=== PATIENT | female | born 1980 | race Caucasian/White ===

== ENCOUNTER → 2017-04-16 | Outpatient (CLI) | payer BC ==
--- NOTE | 2017-04-16 19:24 | WWHP ---
DATE OF SERVICE: 04/16/2017 CHIEF COMPLAINT: Patient is here for her routine gynecologic exam. HPI: This is a 37-year-old G4, P2-0-2-2 with an LMP of 03/26/2017. The patient is without gynecologic complaints. 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 She has had 2 daughters through a qa software tester in [place] who helped her to conceive with IVF. She is thinking about going back for IVF later this summer. She states that they do have frozen embryos of hers that are still available. PAST MEDICAL HISTORY: Seasonal allergies. MEDICATIONS: 1. Claritin 1 daily. 2. Also one vitamins daily. 3. Folic acid supplement daily. ALLERGIES: No known drug allergies. PAST SURGICAL HISTORY: Cyst removed from her tailbone many years ago. Also she has had IVF procedures done in the past. Past OB history: She had four IVF pregnancies and 2 resulted in spontaneous . The last 2 were successful vaginal live births. Past SHIP LOADER history: She has a history of primary infertility as above. She has no history of STDs. SOCIAL HISTORY: She denies tobacco, alcohol, and drug use. 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 She and her recently moved back to [place] in 01/17. FAMILY HISTORY: Unremarkable. She denies family history of defects or mental retardation. REVIEW OF SYSTEMS: Weight has been stable. She denies respiratory, cardiac, or GI problems. PHYSICAL EXAM: Blood pressure 98/57. Height 5 feet 6 inches. Weight 135 pounds. Temperature 96.8, pulse 89. This is a well-developed, well-nourished white female who is alert and oriented x3 in no acute distress. HEENT is within normal limits. NECK: Supple without mass or thyromegaly. CHEST AND LUNGS: Clear to auscultation. HEART: Regular rate and rhythm. Breasts are without mass or discharge. Axillary negative for adenopathy. BACK: Negative for CVA tenderness. ABDOMEN: Soft, nontender, without palpable masses. PELVIC EXAM: Normal external genitalia. Cervix and vagina appear normal. There is no unusual discharge. The uterus is slightly retroverted, nongravid size and nontender. There are no palpable adnexal masses or tenderness. Rectal exam is negative for mass or tenderness. EXTREMITIES: Nontender. IMPRESSION: 1. A 37-year-old female with normal gynecologic exam. 2. History of primary infertility who is planning on undergoing in vitro fertilization possibly later this summer. PLAN: 1. Pap smear was performed. 2. Self-breast examination was discussed. 3. Preconception counseling was discussed. 4. I have stressed the importance of folic acid daily. 5. We have also discussed concerns regarding Zika virus. I have recommended that she check for the latest recommendations on line through the CDC or the NIH websites. 6. We have discussed advanced maternal age and possible increased risk for Down syndrome. She states that her eggs were retrieved and fertilized at age 31. These are frozen embryos that would be used. This would probably put her risk for Down syndrome at the risk quoted for a 31-year-old. 7. She will return in one year and p.r.n.
== END | disposition home or self-care (01) ==
LOC: WWCWWP 09:54
PROVIDERS: ATTEND Obstetrics & Gynecology
DX: Z53.9 Procedure and treatment not carried out, unspecified reason (principal)

== ENCOUNTER → 2017-06-20 | Outpatient (CLI) | payer BC | END | disposition home or self-care (01) | LOC: LABWHC1 09:19 | PROVIDERS: ATTEND Obstetrics & Gynecology Reproductive Endocrinology | DX: Z32.00 Encounter for pregnancy test, result unknown (principal) | CPT/HCPCS: 36415; 84702 ==

== ENCOUNTER → 2017-06-23 | Outpatient (CLI) | payer BC | LOC: LABWHC1 16:25 | PROVIDERS: ATTEND Obstetrics & Gynecology Reproductive Endocrinology | DX: Z32.01 Encounter for pregnancy test, result positive (principal) | CPT/HCPCS: 36415; 84702 ==

== ENCOUNTER → 2017-08-01 | Outpatient (CLI) | payer BC ==
[2017-08-01 19:04] LABS: Estradiol 932.7 pg/mL
== END | disposition home or self-care (01) ==
LOC: LABWHC1 14:42
PROVIDERS: ATTEND Obstetrics & Gynecology Reproductive Endocrinology
DX: Z32.01 Encounter for pregnancy test, result positive (principal)
CPT/HCPCS: 36415; 82670; 84144

== ENCOUNTER 2018-02-19 06:13 | Inpatient (IN) | payer BC ==
[2018-02-19] MEDS ORDERED: TERBUTALINE 1 MG/ML VIAL SQ PRN (06:26)
[2018-02-19] MEDS ORDERED: CARBOPROST TROMETHAMINE 250 MCG/ML 1 ML AMP IM PRN (06:26)
[2018-02-19] MEDS ORDERED: OXYTOCIN 10 UNIT/ML 1 ML VIAL IM PRN (06:26)
[2018-02-19] MEDS ORDERED: METHYLERGONOVINE 0.2 MG/ML 1 ML AMP IM PRN (06:26)
[2018-02-19] MEDS ORDERED: LIDOCAINE 1% (PF) 10 MG/ML (30 ML SDV) SQ PRN (06:26)
[2018-02-19 06:34] VITALS: BMI 27.4
[2018-02-19] MEDS: OXYTOCIN 20 UNITS/1000 ML NS 1,000 ML IV SCH ×2 (06:35→07:37)
[2018-02-19] MEDS: LACTATED RINGERS 1,000 ML IV SCH ×2 (06:35→06:48)
[2018-02-19] MEDS ORDERED: SODIUM CHLORIDE 0.9% 100 ML BAG ONE (07:00)
[2018-02-19] MEDS ORDERED: BUPIVACAINE (PF) 0.25% 30 ML VIAL ONE (07:00)
[2018-02-19] MEDS ORDERED: fentaNYL (PF) 50 MCG/ML 5 ML AMP ONE (07:00)
[2018-02-19] MEDS ORDERED: BUPIVACAINE (PF) 0.25% 25 ML, fentaNYL (PF) 200 MCG in SODIUM CHLORIDE 0.9% 71 ML EPIDURAL ONE (07:20)
[2018-02-19 07:24] LABS: Anisocytosis Slight; Basophils % (A) 0 %; Eosinophils # (A) 0.1 k/uL (0-0.7); Eosinophils % (A) 1 %; HCT 29.5 % (34.0-46.0); HGB 9.5 gm/dL (11.4-16.0); Hypochromasia Moderate; Lymphocytes # (A) 2.3 k/uL (1.0-4.8); Lymphocytes % (A) 22 %; MCH 24.9 pg (25.0-35.0); MCHC 32.1 g/dL (31.0-37.0); MCV 77.5 fL (80.0-100.0); Mean Platelet Volume 9.7; Microcytosis Slight; Monocytes # (A) 0.5 k/uL (0-1.0); Monocytes % (A) 5 %; Neutrophils # (A) 7.2 k/uL (1.3-7.7); Neutrophils % (A) 69 %; Platelet Count 214 k/uL (150-450); Poikilocytosis Slight; RBC 3.81 m/uL (3.80-5.40); RDW 16.3 % (11.5-15.5); WBC 10.4 k/uL (3.8-10.6)
--- NOTE | 2018-02-19 07:27 | P.HPOB ---
History of Present Illness H&P Date: 02/19/18 This is a 38-year-old white female 5 para 20-2 EDC 02/25/2018 at 39 and one sevenths weeks' gestation. Patient presents for induction for advanced cervical dilatation. She was seen in the office yesterday and noted to be 7 cm dilated. She denies fluid leakage or vaginal bleeding. Fetus is been active throughout the . Past medical history is significant for infertility, unexplained. Past surgical history D&C, tailbone removed of the cyst, HSG. Current medications vitamins daily. ALLERGIES none known. Social history patient is , she is a nonsmoker, she is a teacher at a local middle school. Obstetric history blood type A-, rubella status immune. VDRL testing, urine culture, hepatitis B surface antigen, HIV testing, gonorrhea and chlamydia cultures, group B strep cultures all negative. One-hour Glucola 124. On exam this is a pleasant white female, 5 foot 6 inches, 170 pounds, blood pressure 119/77, pulse 88. Gen. physical exam is within normal limits. Extremities are negative for edema. Heart rate is consistent with reactive NST. Cervix is 7 cm dilated, 70% effaced, -1 to -2 station, vertex. Artificial amniorrhexis reveals clear fluid. Impression: 39 and one sevenths weeks intrauterine , advanced maternal age, advanced cervical dilatation, here for elective induction, all signs reassuring. Plan: Close maternal and surveillance. Epidural has been placed per patient request. Anticipate normal spontaneous vaginal delivery. Review of Systems Constitutional: Reports as per HPI Past Medical History Past Medical History: No Reported History History of Any Multi-Drug Resistant Organisms: None Reported Additional Past Surgical History / Comment(s): Cyst Removed from tail bone 1997. [place] Tooth Extraction Past Anesthesia/Blood Transfusion Reactions: No Reported Reaction Past Psychological History: No Psychological Hx Reported Smoking Status: Never smoker Past Alcohol Use History: None Reported Past Drug Use History: None Reported - Past Family History Mother Family Medical History: No Reported History Medications and Allergies Home Medications Medication Instructions Recorded Confirmed Type Albuterol Inhaler [Ventolin Hfa 1 puff PO DIRECTED 02/19/18 02/19/18 History Inhaler] Pnv No.95/Ferrous Fum/Folic AC 1 each PO DAILY 02/19/18 02/19/18 History [ Multivitamin Tablet] Allergies Allergy/AdvReac Type Severity Reaction Status Date / Time No Known Allergies Allergy Verified 02/19/18 06:24 Exam - Vital Signs Vital signs: Vital Signs Temp Pulse Resp BP 02/19/18 06:27 97.3 F L 88 16 119/77 Intake and Output 02/18/18 02/19/18 02/19/18 22:59 06:59 14:59 Intake Total 1000 Balance 1000 Intake: Intake, IV Titration 1000 Amount Lactated Ringers 1,000 ml 1000 @ 125 mls/hr IV .Q8H [facility] Rx#:[id number] Other: Weight 77.111 kg See dictation, please Assessment and Plan Plan: Close maternal and surveillance. Anticipate normal spontaneous vaginal delivery. Time with Patient: Less than 30
[2018-02-19] MEDS ORDERED: diphenhydrAMINE 25 MG CAP PO PRN (12:12)
[2018-02-19] MEDS ORDERED: WITCH HAZEL 1 EACH MED..PAD TOPICAL PRN (12:12)
[2018-02-19] MEDS ORDERED: diphenhydrAMINE 50 MG CAP PO PRN (12:12)
[2018-02-19] MEDS ORDERED: diphenhydrAMINE 50 MG/ML 1 ML VIAL IVP PRN ×2 (12:12)
[2018-02-19] MEDS ORDERED: LANOLIN CREAM 5 GM TUBE TOPICAL PRN (12:12)
[2018-02-19] MEDS ORDERED: ACETAMINOPHEN TAB 325 MG TAB PO PRN (12:12)
[2018-02-19] MEDS ORDERED: ZOLPIDEM 5 MG TAB PO PRN (12:12)
[2018-02-19] MEDS ORDERED: SIMETHICONE 80 MG CHEWABLE PO PRN (12:12)
[2018-02-19] MEDS ORDERED: BENZOCAINE/MENTHOL SPRAY 1 GM/SPRAY AEROSOL TOPICAL PRN (12:12)
--- NOTE | 2018-02-19 12:34 | DN ---
DELIVERY SUMMARY DATE OF DELIVERY: 02/19/2018 This is a 38-year-old white female, 5, para 2-0-2-2, EDC 02/25/2018, at 39-1/7 weeks' gestation. Patient presented for induction for advanced cervical dilatation, she was noted to be 7 cm dilated yesterday in the office. otherwise unremarkable. She denies uterine contractions or vaginal bleeding. She denies fluid leakage. On admission, she was 7 cm, 70%, -2, vertex presentation. Artificial amniorrhexis revealed clear fluid. Epidural was placed per her request. Oxytocin was started and titrated per hospital protocol. Patient progressed well through the first stage of labor and was judged to be completely dilated at 1119 hours. Perineal body was prepped and draped in usual sterile fashion at that time. With excellent maternal expulsive efforts, ultimately, the perineal body was distended and the 's head delivered occiput anterior. She restituted accordingly. There was no nuchal cord noted. The right or anterior shoulder was gently delivered from underneath the pubic symphysis at which time the oropharynx, nasopharynx, and external nares were all bulb suctioned on the perineal body. Patient was officially delivered of a live-born female at 1144 hours. The umbilical cord was doubly clamped and ligated, she was handed to waiting nurses for evaluation where scores of 9 and 9 at one and five minutes respectively were given. Placenta delivered spontaneously, it was inspected and noted to be intact with trivascular cord at 1148 hours. At this time, the perineal body was redraped. Inspection of the cervix, vagina, perineum, and periurethral areas revealed a small first-degree laceration at 6 o'clock. This was reapproximated with a single [id number] suture of 3-0 Vicryl. Fundus is firm and in the midline, symmetric and 18-week size upon completion of delivery. Cord blood was sent to the lab for known Rh negative status. Infant's weight 3660 g or 8 pounds 1 ounce. The patient and her family are allowed to begin the bonding experience in the LDR. MMODL / IJN: [id number] /
[2018-02-19] MEDS: IBUPROFEN 600 MG TAB PO PRN ×2 (12:48→19:39)
[2018-02-19] MEDS ORDERED: Rhogam IMMUNE GLOBULIN 1,500 UNIT/1 ML IM ONE (17:28)
[2018-02-19] MEDS: SENNOSIDES-DOCUSATE SODIUM 1 EACH TAB PO SCH (19:39)
[2018-02-20] MEDS: LACTATED RINGERS 1,000 ML IV SCH (00:49)
[2018-02-20] MEDS: IBUPROFEN 600 MG TAB PO PRN ×3 (02:01→14:57)
--- NOTE | 2018-02-20 07:13 | P.DS ---
Providers Date of admission: 02/19/18 06:13 Expected date of discharge: 02/20/18 Attending physician: Leatha Snow Primary care physician: Stated None Hospital Course: This is a 38-year-old female 5 para 20-2 EDC 02/25/2018 at 39 and one sevenths weeks' gestation. Patient presented for induction with advanced cervical dilatation, she was noted to be 7 cm dilated in the office. was otherwise unremarkable, group B strep cultures negative, rubella status immune. Please see my dictated history and physical for details. Artificial amniorrhexis revealed clear fluid. Epidural was placed per her request. Oxytocin was started and titrated per hospital protocol. She went on to deliver a liveborn female with scores of 9 and 9 at one and 5 minutes respectively. Infant weight 8 lbs. 1 oz. or 3660 g. There was a small first-degree perineal laceration that required a single [id number] suture of Vicryl, please see dictated delivery note for details. This morning the patient is doing well. She is voiding, ambulate and passing flatus without difficulty. Vital signs are stable and she is afebrile. Fundus is firm and in the midline, symmetric and 18 week size. Extremities are negative for edema. Chest is clear in all wisdom. is doing well. Breast-feeding is also going well. Patient is being discharged home today in very good condition. She will follow- up in the office with me in 6 weeks. I have reminded her no intercourse, tampons or douching. She will use [id number] ibuprofen products as needed for pain. We have briefly discussed options for contraception and we will discuss this further in the office. She is to call with any fevers shakes or chills, foul smelling or copious lochia, with the passage of large blood clots, with any pain not alleviated by ibuprofen, or indeed with any concerns. Patient Condition at Discharge: Good Plan - Discharge Summary New Discharge Prescriptions: No Action Pnv No.95/Ferrous Fum/Folic AC [ Multivitamin Tablet] 1 each PO DAILY Albuterol Inhaler [Ventolin Hfa Inhaler] 1 puff PO DIRECTED Discharge Medication List Albuterol Inhaler [Ventolin Hfa Inhaler] 1 puff PO DIRECTED 02/19/18 [History ] Pnv No.95/Ferrous Fum/Folic AC [ Multivitamin Tablet] 1 each PO DAILY [History] Follow up Appointment(s)/Referral(s): Leatha Snow MD [STAFF PHYSICIAN] - 6 Weeks
[2018-02-20] MEDS: SENNOSIDES-DOCUSATE SODIUM 1 EACH TAB PO SCH (07:41)
[2018-02-20 08:30] LABS: Anisocytosis Slight; Basophils % (A) 0 %; Eosinophils # (A) 0.1 k/uL (0-0.7); Eosinophils % (A) 1 %; HCT 27.3 % (34.0-46.0); HGB 8.6 gm/dL (11.4-16.0); Hypochromasia Moderate; Lymphocytes # (A) 2.3 k/uL (1.0-4.8); Lymphocytes % (A) 19 %; MCH 24.8 pg (25.0-35.0); MCHC 31.6 g/dL (31.0-37.0); MCV 78.5 fL (80.0-100.0); Mean Platelet Volume 9.4; Microcytosis Slight; Monocytes # (A) 0.5 k/uL (0-1.0); Monocytes % (A) 4 %; Neutrophils # (A) 8.7 k/uL (1.3-7.7); Neutrophils % (A) 73 %; Platelet Count 175 k/uL (150-450); Poikilocytosis Slight; RBC 3.48 m/uL (3.80-5.40); RDW 16.5 % (11.5-15.5); WBC 11.9 k/uL (3.8-10.6)
[2018-02-20 10:24] VITALS: BP 124/73; PULSE 90; RESP 16; TEMP 98.1
== END 2018-02-20 14:55 | disposition home or self-care (01) | DRG 775 ==
LOC: 4FBP 06:13
PROVIDERS: ADMIT Obstetrics & Gynecology; ATTEND Obstetrics & Gynecology
PROC: 3E0R3NZ Introduction of Analgesics, Hypnotics, Sedatives into Spinal Canal, Percutaneous Approach (ICD-10-PCS; principal; 2018-02-19)
PROC: 10E0XZZ Delivery of Products of Conception, External Approach (ICD-10-PCS; principal; 2018-02-19)
PROC: 10907ZC Drainage of Amniotic Fluid, Therapeutic from Products of Conception, Via Natural or Artificial Opening (ICD-10-PCS; principal; 2018-02-19)
PROC: 0HQ9XZZ Repair Perineum Skin, External Approach (ICD-10-PCS; principal; 2018-02-19)
PROC: 00HU33Z Insertion of Infusion Device into Spinal Canal, Percutaneous Approach (ICD-10-PCS; principal; 2018-02-19)
PROC: 3E033VJ Introduction of Other Hormone into Peripheral Vein, Percutaneous Approach (ICD-10-PCS; principal; 2018-02-19)
DX: O70.0 First degree perineal laceration during delivery (principal); Z37.0 Single live birth; Z3A.39 39 weeks gestation of pregnancy
CPT/HCPCS: 85025; 85461; 88307

== ENCOUNTER 2018-02-27 20:40 | Observation (INO) | payer BC ==
[2018-02-27] MEDS ORDERED: SODIUM CHLORIDE 0.9% 1,000 ML IV STA ×2 (21:35→22:41)
[2018-02-27] MEDS ORDERED: cefTRIAXone IN SWFI 2,000 MG/20 ML SYRINGE IVP STA (21:42)
[2018-02-27] MEDS ORDERED: metroNIDAZOLE-NS PMX 500 MG in SALINE 1 100ML.BAG IVPB STA (21:42)
[2018-02-27 22:27] LABS: Anisocytosis Slight; Basophils % (A) 0 %; Eosinophils % (A) 0 %; HCT 29.4 % (34.0-46.0); HGB 9.4 gm/dL (11.4-16.0); Hypochromasia Slight; Lymphocytes # (A) 1.2 k/uL (1.0-4.8); Lymphocytes % (A) 8 %; MCH 24.3 pg (25.0-35.0); MCV 75.9 fL (80.0-100.0); Mean Platelet Volume 7.9; Microcytosis Slight; Monocytes # (A) 0.5 k/uL (0-1.0); Monocytes % (A) 3 %; Neutrophils % (A) 88 %; Platelet Count 343 k/uL (150-450); Poikilocytosis Slight; RBC 3.87 m/uL (3.80-5.40); RDW 17.2 % (11.5-15.5); WBC 15.9 k/uL (3.8-10.6)
[2018-02-27 22:28] LABS: Appearance,Urine Clear (Clear); Bacteria,Urine Rare /hpf; Bilirubin,Urine Negative (Negative); Blood,Urine Moderate (Negative); Color,Urine Yellow; Glucose,Urine (UA) Negative (Negative); Ketones,Urine Negative (Negative); Leukocyte Esterase,Urine Trace (Negative); Mucus,Urine Rare /hpf; Nitrite,Urine Negative (Negative); Protein,Urine 1+ (Negative); RBC,Urine 25 /hpf (0-5); Specific Gravity,Urine 1.022 (1.001-1.035); Squamous Epithelial Cell,Urine 3 /hpf (0-4); Urobilinogen,Urine <2.0 mg/dL (<2.0); WBC,Urine 9 /hpf (0-5)
[2018-02-27 22:36] LABS: ALT 76 U/L (9-52); AST 42 U/L (14-36); Albumin 3.1 g/dL (3.5-5.0); Alkaline Phosphatase 207 U/L (38-126); Anion Gap 12 mmol/L; Blood Urea Nitrogen 16 mg/dL (7-17); Carbon Dioxide 21 mmol/L (22-30); Chloride 106 mmol/L (98-107); Glucose 109 mg/dL (74-99); Potassium 3.6 mmol/L (3.5-5.1); Sodium 139 mmol/L (137-145); Total Bilirubin 0.4 mg/dL (0.2-1.3)
--- NOTE | 2018-02-27 22:50 | US ---
EXAMINATION TYPE: US pelvic complete DATE OF EXAM: 02/27/2018 COMPARISON: NONE CLINICAL HISTORY: Pain. Fever. Vaginal delivery 02/19/18 TECHNIQUE: Transabdominal (TA). Date of LMP: unknown EXAM MEASUREMENTS: Uterus: 16.6 x 8.2 x 12.4 cm Right Ovary: 3.9 x 2.4 x 2.3 cm Left Ovary: 4.3 x 2.9 x 2.6 cm 1. Uterus: Anteverted 2. Endometrium: heterogeneous, fluid and solid component noted within, unable to detect any increase d vascularity at this time 3. Right Ovary: appears wnl 4. Left Ovary: appears wnl Spectral, color and waveform doppler imaging shows good arterial and venous flow within the ovaries ; there is no evidence for ovarian torsion. 5. Bilateral Adnexa: appears wnl 6. Posterior cul-de-sac: wnl IMPRESSION: Large uterus. There is complex fluid in the endometrial cavity that measures u p to 2 cm in thickness consistent with blood clot and possible endometritis. Retained products is pos sible.
--- NOTE | 2018-02-27 22:55 | ED ---
General Adult HPI - General Chief complaint: Fever Stated complaint: Fever Time Seen by Provider: 02/27/18 21:08 Source: patient, RN notes reviewed Mode of arrival: ambulatory Limitations: no limitations - History of Present Illness Initial comments: 38-year-old P3 female presents to the emergency department for a chief complaint of fever 2 days. Patient is date 8 with her third child. Patient states that she has had chills intermittently over the past 2 days. Patient states that yesterday her fever was [address] Snow who instructed her to take fever suppressants. Patient states when she spoke with Dr. Snow she was having breast pain and she thought the fever may be related to mastitis. Patients breast pain has since subsided. Today, patient complains of mild abdominal pain. Patient denies any urinary pain or burning. However she states that when she has the chills she is slightly incontinent. Patient states she has been able to eat and drink normally. Patient does complain of some mild lower back pain but states this has been consistent throughout her and post period. Patient denies any other complaints at this time. Patient denies any shortness of breath, chest pain, nausea or vomiting. - Related Data Home Medications Medication Instructions Recorded Confirmed Pnv No.95/Ferrous Fum/Folic AC 1 tab PO DAILY 02/19/18 02/27/18 [ Multivitamin Tablet] Acetaminophen Tab [Tylenol Tab] 500 - 1,000 mg PO Q6HR PRN 02/27/18 02/27/18 Allergies Allergy/AdvReac Type Severity Reaction Status Date / Time No Known Allergies Allergy Verified 02/27/18 20:54 Review of Systems ROS Statement: Those systems with pertinent positive or pertinent negative responses have been documented in the HPI. ROS Other: All systems not noted in ROS Statement are negative. Past Medical History Past Medical History: No Reported History History of Any Multi-Drug Resistant Organisms: None Reported Additional Past Surgical History / Comment(s): Cyst Removed from tail bone 1997. [place] Tooth Extraction Past Anesthesia/Blood Transfusion Reactions: No Reported Reaction Past Psychological History: No Psychological Hx Reported Smoking Status: Never smoker Past Alcohol Use History: None Reported Past Drug Use History: None Reported - Past Family History Mother Family Medical History: No Reported History General Exam Limitations: no limitations General appearance: alert, in no apparent distress Eye exam: Present: normal appearance, PERRL, EOMI. Absent: scleral icterus, conjunctival injection, periorbital swelling ENT exam: Present: normal exam, normal oropharynx, mucous membranes moist, TM's normal bilaterally Neck exam: Present: normal inspection, full ROM. Absent: tenderness, meningismus, lymphadenopathy Respiratory exam: Present: normal lung sounds bilaterally. Absent: respiratory distress, wheezes, rales, rhonchi, stridor Cardiovascular Exam: Present: regular rate, normal rhythm, normal heart sounds. Absent: systolic murmur, diastolic murmur, rubs, gallop, clicks GI/Abdominal exam: Present: soft, tenderness (Mild tenderness in the right and left lower quadrant.), normal bowel sounds. Absent: distended, guarding, rebound, rigid External exam: Present: normal external exam Speculum exam: Present: vaginal bleeding. Absent: vaginal discharge, cervical discharge, foreign body, tissue, laceration Neurological exam: Present: alert, oriented X3, CN II-XII intact Psychiatric exam: Present: normal affect, normal mood Skin exam: Present: other (Bilat Breasts appear non-erythematous and there is no drainage noted. Breasts are nontender to palpation.) Course Vital Signs 02/27/18 20:43 Temperature 102.7 F H Pulse Rate 116 H Respiratory 18 Rate Blood Pressure 133/60 O2 Sat by Pulse 98 Oximetry Medical Decision Making - Medical Decision Making 38-year-old female presents to the emergency department for a chief complaint of fever 2 days. Patient states that yesterday her fever reached [address] Snow who thought it was likely mastitis and instructed her to take fever reducers. Patient went to [facility] earlier today and they told her to come here. Exam is relatively unremarkable. Patient has very mild lower abdominal tenderness. Bilateral breasts are non- erythematous and non tender. No drainage from the breasts. Speculum exam showed some blood in the vaginal vault and a culture was performed. Patient's temperature 102.7 on presentation with a pulse rate of 116. CBC shows White blood cell count 15.9. Hemoglobin 9.4. CMP unremarkable. Lactic acid is 1.1. Blood culture was drawn before antibiotics were started. Urine does not show infection. Influenza A and B were negative. Ultrasound of the pelvis shows a large uterus. There is complex fluid in the endometrial cavity that measures up to 2 cm in thickness consistent with blood clot and possible endometritis. Retained products is possible. Patient was given Tylenol and Motrin which decreased her temperature to 100.9 and pulse rate to 88. She was given IV Rocephin and Flagyl as well as [address] Kendrick consulted Dr. Snow who instructed for patient to be admitted and nothing by mouth. Continuing Rocephin and Flagyl. She will have [facility] for fever reduction. - Lab Data Result diagrams: 02/27/18 22:12 02/27/18 22:12 Lab Results 02/27/18 02/27/18 02/27/18 Range/Units 22:12 22:12 22:12 WBC 15.9 H (3.8-10.6) k/uL RBC 3.87 (3.80-5.40) m/uL Hgb 9.4 L (11.4-16.0) gm/dL Hct 29.4 L (34.0-46.0) % MCV 75.9 L (80.0-100.0) fL MCH 24.3 L (25.0-35.0) pg MCHC 32.0 (31.0-37.0) g/dL RDW 17.2 H (11.5-15.5) % Plt Count 343 (150-450) k/uL Neutrophils % 88 % Lymphocytes % 8 % Monocytes % 3 % Eosinophils % 0 % Basophils % 0 % Neutrophils # 14.0 H (1.3-7.7) k/uL Lymphocytes # 1.2 (1.0-4.8) k/uL Monocytes # 0.5 (0-1.0) k/uL Eosinophils # 0.0 (0-0.7) k/uL Basophils # 0.0 (0-0.2) k/uL Hypochromasia Slight Poikilocytosis Slight Anisocytosis Slight Microcytosis Slight Sodium 139 (137-145) mmol/L Potassium 3.6 (3.5-5.1) mmol/L Chloride 106 (98-107) mmol/L Carbon Dioxide 21 L (22-30) mmol/L Anion Gap 12 mmol/L BUN 16 (7-17) mg/dL Creatinine 0.60 (0.52-1.04) mg/dL Est GFR (CKD-EPI)AfAm >90 (>60 ml/min/1.73 sqM) Est GFR (CKD-EPI)NonAf >90 (>60 ml/min/1.73 sqM) Glucose 109 H (74-99) mg/dL Plasma Lactic Acid Enrique (0.7-2.0) mmol/L Calcium 9.0 (8.4-10.2) mg/dL Total Bilirubin 0.4 (0.2-1.3) mg/dL AST 42 H (14-36) U/L ALT 76 H (9-52) U/L Alkaline Phosphatase 207 H (38-126) U/L Total Protein 6.0 L (6.3-8.2) g/dL Albumin 3.1 L (3.5-5.0) g/dL Urine Color Urine Appearance (Clear) Urine pH (5.0-8.0) Ur Specific [place] (1.001-1.035) Urine Protein (Negative) Urine Glucose (UA) (Negative) Urine Ketones (Negative) Urine Blood (Negative) Urine Nitrite (Negative) Urine Bilirubin (Negative) Urine Urobilinogen (<2.0) mg/dL Ur Leukocyte Esterase (Negative) Urine RBC (0-5) /hpf Urine WBC (0-5) /hpf Ur Squamous Epith Cells (0-4) /hpf Urine Bacteria (None) /hpf Urine Mucus (None) /hpf Influenza Type A RNA Not Detected (Not Detectd) Influenza Type B (PCR) Not Detected (Not Detectd) 02/27/18 02/27/18 Range/Units 22:12 22:12 WBC (3.8-10.6) k/uL RBC (3.80-5.40) m/uL Hgb (11.4-16.0) gm/dL Hct (34.0-46.0) % MCV (80.0-100.0) fL MCH (25.0-35.0) pg MCHC (31.0-37.0) g/dL RDW (11.5-15.5) % Plt Count (150-450) k/uL Neutrophils % % Lymphocytes % % Monocytes % % Eosinophils % % Basophils % % Neutrophils # (1.3-7.7) k/uL Lymphocytes # (1.0-4.8) k/uL Monocytes # (0-1.0) k/uL Eosinophils # (0-0.7) k/uL Basophils # (0-0.2) k/uL Hypochromasia Poikilocytosis Anisocytosis Microcytosis Sodium (137-145) mmol/L Potassium (3.5-5.1) mmol/L Chloride (98-107) mmol/L Carbon Dioxide (22-30) mmol/L Anion Gap mmol/L BUN (7-17) mg/dL Creatinine (0.52-1.04) mg/dL Est GFR (CKD-EPI)AfAm (>60 ml/min/1.73 sqM) Est GFR (CKD-EPI)NonAf (>60 ml/min/1.73 sqM) Glucose (74-99) mg/dL Plasma Lactic Acid Enrique 1.1 (0.7-2.0) mmol/L Calcium (8.4-10.2) mg/dL Total Bilirubin (0.2-1.3) mg/dL AST (14-36) U/L ALT (9-52) U/L Alkaline Phosphatase (38-126) U/L Total Protein (6.3-8.2) g/dL Albumin (3.5-5.0) g/dL Urine Color Yellow Urine Appearance Clear (Clear) Urine pH 7.0 (5.0-8.0) Ur Specific [place] 1.022 (1.001-1.035) Urine Protein 1+ H (Negative) Urine Glucose (UA) Negative (Negative) Urine Ketones Negative (Negative) Urine Blood Moderate H (Negative) Urine Nitrite Negative (Negative) Urine Bilirubin Negative (Negative) Urine Urobilinogen <2.0 (<2.0) mg/dL Ur Leukocyte Esterase Trace H (Negative) Urine RBC 25 H (0-5) /hpf Urine WBC 9 H (0-5) /hpf Ur Squamous Epith Cells 3 (0-4) /hpf Urine Bacteria Rare H (None) /hpf Urine Mucus Rare H (None) /hpf Influenza Type A RNA (Not Detectd) Influenza Type B (PCR) (Not Detectd) Disposition Clinical Impression: Endometritis, Retained products of conception Disposition: ADMITTED IP TO THIS [facility] Condition: Good Is patient prescribed a controlled substance at d/c from ED?: No Referrals: None,Stated [Primary Care Provider] - 1-2 days Time of Disposition: 23:53
[2018-02-27] MEDS ORDERED: IBUPROFEN 600 MG TAB PO STA (23:16)
[2018-02-27] MEDS ORDERED: KETOROLAC 30 MG/ML 1 ML VIAL IVP PRN (23:37)
[2018-02-27] MEDS ORDERED: NALOXONE 0.4 MG/ML 1 ML VIAL IV PRN (23:37)
[2018-02-27] MEDS: ACETAMINOPHEN IV (For NPO) 1,000 MG in EMPTY BAG 1 BAG IVPB SCH (23:55)
[2018-02-28 00:45] VITALS: BMI 25.2
[2018-02-28] MEDS: SODIUM CHLORIDE 0.9% 1,000 ML IV SCH ×2 (00:54→11:01)
[2018-02-28] MEDS: ACETAMINOPHEN IV (For NPO) 1,000 MG in EMPTY BAG 1 BAG IVPB SCH ×2 (06:24→11:03)
[2018-02-28] MEDS ORDERED: metroNIDAZOLE-NS PMX 500 MG in SALINE 1 100ML.BAG IVPB SCH (08:00)
--- NOTE | 2018-02-28 10:58 | P.HPOB ---
History of Present Illness H&P Date: 02/28/18 Chief Complaint: Fever of 103.1 at home This is a 38-year-old white female 5 para 30-3 status post normal spontaneous vaginal delivery of 8 lbs. 1 oz. baby on 02/19/2018. Patient states that she was doing well at home, had only minimal vaginal bleeding. She did develop chills at home tonight to go, and took her temperature yesterday, noting it to be 103.1. She presented to the emergency room where a fever was documented, along with a white blood cell count of 15.9 and a left shift of 14 neutrophils. In addition, ultrasound was performed which revealed a large uterus measuring 16.6 x 8.2 x 12.4 cm. It appears to have an area of complex fluid in the fundus measuring approximately 2 cm, possible blood clot versus retained products of conception. Patient denies any issues with breast-feeding. There are noted urinary symptoms. Review of systems is otherwise negative. Past medical history essentially negative. Past social history is significant for patient being , negative tobacco alcohol or drug use. Past surgical history D&C 2008 for miscarriage. Current medications vitamins daily. ALLERGIES none known. Family history is unremarkable. On exam this is a pleasant white female, 5 foot 6 inches, 156 pounds, vital signs are stable and she is currently afebrile. Breasts are negative. Chest is clear in all wisdom anteriorly and posteriorly. Cardiac exam reveals regular rate and rhythm with no murmur click or rub. Extremities reveal no edema. Pelvic exam reveals minimal lochia rubra, non-malodorous. Uterus is possibly 14 week size, slightly tender to palpation, mobile and firm. HEENT exam is otherwise negative. Impression: Suspect endometritis with possible small amount of retained products of conception, 8 days status post vaginal delivery. Plan: Antibiotics have been given. We will proceed with suction D&C. Patient will likely be discharged home later this afternoon on Flagyl 500 mg twice daily. The risks benefits and alternatives of this procedure have been discussed with her in detail, risk of bleeding, infection, perforation or damage to uterus or pelvic organs, risks of anesthesia have also been discussed. I believe the patient understands our discussion without reservation. Review of Systems Constitutional: Reports as per HPI, Reports chills, Reports fever Past Medical History Past Medical History: No Reported History History of Any Multi-Drug Resistant Organisms: None Reported Additional Past Surgical History / Comment(s): Cyst Removed from tail bone 1997. [place] Tooth Extraction Past Anesthesia/Blood Transfusion Reactions: No Reported Reaction Past Psychological History: No Psychological Hx Reported Smoking Status: Never smoker Past Alcohol Use History: None Reported Past Drug Use History: None Reported - Past Family History Mother Family Medical History: No Reported History Medications and Allergies Home Medications Medication Instructions Recorded Confirmed Type Pnv No.95/Ferrous Fum/Folic AC 1 tab PO DAILY 02/19/18 02/28/18 History [ Multivitamin Tablet] Acetaminophen Tab [Tylenol Tab] 500 - 1,000 mg PO Q6HR PRN 02/27/18 02/27/18 History Allergies Allergy/AdvReac Type Severity Reaction Status Date / Time No Known Allergies Allergy Verified 02/27/18 20:54 Exam - Vital Signs Vital signs: Vital Signs Temp Pulse Pulse Resp BP BP Pulse Ox 02/28/18 10:45 98.4 F 72 16 107/65 98 02/28/18 06:15 98.4 F 72 16 107/65 98 02/28/18 00:15 98.7 F 81 16 112/69 96 02/28/18 00:09 100.2 F H 87 18 116/68 100 02/28/18 00:00 81 18 02/27/18 23:33 98.7 F 89 81 16 129/65 96 02/27/18 20:43 102.7 F H 116 H 18 133/60 98 Intake and Output 02/27/18 02/28/18 02/28/18 22:59 06:59 14:59 Other: Voiding Method Toilet # Voids 2 Weight 77.111 kg 70.902 kg See dictation under HPI please Results Result Diagrams: 02/27/18 22:12 02/27/18 22:12 Abnormal Lab Results - Last 24 Hours (Table) 02/27/18 02/27/18 02/27/18 Range/Units 22:12 22:12 22:12 WBC 15.9 H (3.8-10.6) k/uL Hgb 9.4 L (11.4-16.0) gm/dL Hct 29.4 L (34.0-46.0) % MCV 75.9 L (80.0-100.0) fL MCH 24.3 L (25.0-35.0) pg RDW 17.2 H (11.5-15.5) % Neutrophils # 14.0 H (1.3-7.7) k/uL Carbon Dioxide 21 L (22-30) mmol/L Glucose 109 H (74-99) mg/dL AST 42 H (14-36) U/L ALT 76 H (9-52) U/L Alkaline Phosphatase 207 H (38-126) U/L Total Protein 6.0 L (6.3-8.2) g/dL Albumin 3.1 L (3.5-5.0) g/dL Urine Protein 1+ H (Negative) Urine Blood Moderate H (Negative) Ur Leukocyte Esterase Trace H (Negative) Urine RBC 25 H (0-5) /hpf Urine WBC 9 H (0-5) /hpf Urine Bacteria Rare H (None) /hpf Urine Mucus Rare H (None) /hpf Assessment and Plan Plan: For suction D&C at this time. Time with Patient: Greater than 30
[2018-02-28] MEDS ORDERED: ONDANSETRON 4 MG/2 ML VIAL ONE (11:23)
[2018-02-28] MEDS ORDERED: MIDAZOLAM 2 MG/2 ML VIAL ONE (11:23)
[2018-02-28] MEDS ORDERED: PROPOFOL 10 MG/ML 20 ML VIAL IV ONE (11:23)
[2018-02-28] MEDS ORDERED: LACTATED RINGERS 1,000 ML IV ONE ×3 (11:23→12:15)
[2018-02-28] MEDS ORDERED: KETOROLAC 30 MG/ML 1 ML VIAL ONE (11:23)
[2018-02-28] MEDS ORDERED: fentaNYL (PF) 50 MCG/ML 2 ML AMP ONE (11:23)
[2018-02-28] MEDS ORDERED: LIDOCAINE 1% INJ 10MG/ML (20 ML MDV) ONE (11:23)
--- NOTE | 2018-02-28 11:49 | P.OP ---
Date of Procedure: 02/28/18 Preoperative Diagnosis: Retained products of conception Postoperative Diagnosis: Same Procedure(s) Performed: Suction curettage of the uterine cavity Anesthesia: RYLIE Surgeon: Leatha Snow Passenger Conductor #1: Stated None Estimated Blood Loss (ml): 200 IV fluids (ml): 800 Urine output (ml): 200 Pathology: other (Intrauterine contents) Condition: stable Disposition: PACU Description of Procedure: Patient is brought to the operating suite where a general anesthetic is administered without difficulty. She's placed in the dorsal lithotomy position. Antibiotics previously given in the emergency room. The appropriate timeout is performed to assure proper patient and procedural identification. The cervix, perineal body, and lower abdomen are all prepped and draped in the usual sterile fashion. Examination under anesthesia reveals a uterus that is firm, 14-16 week size, mobile and in the midline. Negative adnexa bilaterally. Bladder is drained for 200 mL of clear yellow urine. Weighted speculum was placed into the vagina. The cervix is already dilated. It is grasped gently on the anterior lip with a double-tooth tenaculum. A #12 curved suction curette is used and placed to the dome of the fundus. Under appropriate suction pressures the uterus is curettaged for a moderate amount of old-appearing blood and potential membranes and tissue. A sharp curette is then used to assure that the cavity is completely and uniformly emptied. This was done gently so as to prevent uterine perforation. Examination under anesthesia now reveals a mobile firm uterus approximate 14 week size. Bleeding is scant. All sponge needle and enhancement counts are correct at the end of the procedure. Patient is brought back to the recovery room in stable condition with a blood pressure 102/53, pulse 104. All sponge needle and enhancement counts are correct. She is given Toradol prior to leaving the operative suite. She will follow-up with me in the office. A prescription for Flagyl 500 mg 1 pill twice daily is given for 1 week. Methergine is considered, but not deemed to be clinically appropriate.
[2018-02-28 12:27] VITALS: RESP 16
[2018-02-28 12:45] VITALS: TEMP 99.2
[2018-02-28 13:45] VITALS: BP 108/70; PULSE 71
[2018-02-28] MEDS ORDERED: cefTRIAXone IN SWFI 2,000 MG/20 ML SYRINGE IVP SCH (22:00)
== END 2018-02-28 14:25 | disposition home or self-care (01) ==
LOC: EC 20:40 → 6PED 23:33
PROVIDERS: ADMIT Obstetrics & Gynecology; ATTEND Obstetrics & Gynecology
DX: O73.1 Retained portions of placenta and membranes, without hemorrhage (principal)
CPT/HCPCS: 59160; 99284 ×2; 96375 ×2; 96361 ×2; 96365 ×2; 96366; 36415; 88305; 80053; 83605; 85025; 81001; 87040; 87070; 87086; 87205; 87502; 93975; 76856; G0378 ×2; J2250; J2405; J0696; J2001; J3010; J1885; J2704

== ENCOUNTER 2021-05-16 05:27 | Emergency (ER) | payer BC ==
[2021-05-16 05:41] VITALS: TEMP 98.2
--- NOTE | 2021-05-16 06:30 | ED ---
Eye Problem HPI - General Chief complaint: Eye Problems Stated complaint: Vision problems, poss anxiety attack Time Seen by Provider: 05/16/21 05:53 Source: patient, RN notes reviewed Mode of arrival: ambulatory Limitations: no limitations - History of Present Illness Initial comments: This a 41-year-old female presents emergency from chief complaint of visual changes. 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 She was told that she has some thickening of her whining unsure where. Patient states that she was instructed to follow up with Renea any changes. She states she noticed Friday and Friday she started having some visual changes no she states her hazy, blurry spots in her vision. Patient denies any trauma no ocul ar pain. Patient states she has normal pressures. Patient states she does work contacts and glasses. Patient denies any headache or dizziness. Patient states that she does have some visual floaters in which she's had those in the past. - Related Data Home Medications Medication Instructions Recorded Confirmed Pnv No.95/Ferrous Fum/Folic AC 1 tab PO DAILY 02/19/18 02/28/18 [ Multivitamin Tablet] Acetaminophen Tab [Tylenol Tab] 500 - 1,000 mg PO Q6HR PRN 02/27/18 02/27/18 Allergies Allergy/AdvReac Type Severity Reaction Status Date / Time No Known Allergies Allergy Verified 05/16/21 05:41 Review of Systems ROS Statement: Those systems with pertinent positive or pertinent negative responses have been documented in the HPI. ROS Other: All systems not noted in ROS Statement are negative. Past Medical History Past Medical History: No Reported History History of Any Multi-Drug Resistant Organisms: None Reported Additional Past Surgical History / Comment(s): Cyst Removed from tail bone 1997. [place] Tooth Extraction Past Anesthesia/Blood Transfusion Reactions: No Reported Reaction Past Psychological History: No Psychological Hx Reported Smoking Status: Never smoker Past Alcohol Use History: None Reported Past Drug Use History: None Reported - Past Family History Mother Family Medical History: No Reported History General Exam Limitations: no limitations General appearance: alert, in no apparent distress Head exam: Present: atraumatic, normocephalic, normal inspection Eye exam: Present: normal appearance, PERRL, EOMI. Absent: scleral icterus, conjunctival injection, periorbital swelling ENT exam: Present: normal exam, normal oropharynx, mucous membranes moist, TM's normal bilaterally Neck exam: Present: normal inspection, full ROM. Absent: tenderness, meningismus, lymphadenopathy Respiratory exam: Present: normal lung sounds bilaterally. Absent: respiratory distress, wheezes, rales, rhonchi, stridor Cardiovascular Exam: Present: regular rate, normal rhythm, normal heart sounds. Absent: systolic murmur, diastolic murmur, rubs, gallop, clicks Neurological exam: Present: alert, oriented X3, CN II-XII intact Course Vital Signs 05/16/21 05:36 Temperature 98.2 F Pulse Rate 111 H Respiratory 20 Rate Blood Pressure 108/69 O2 Sat by Pulse 96 Oximetry Medical Decision Making - Medical Decision Making Visual acuity is unremarkable. Patient states discussed with Dr. Campos in which her in the office next hour. Patient will head over there for evaluation Disposition Clinical Impression: Visual changes Disposition: HOME SELF-CARE Condition: Stable Additional Instructions: Go directly to Dr. Campos's office.Please return to the Emergency Department if symptoms worsen or any other concerns. Is patient prescribed a controlled substance at d/c from ED?: No Referrals: None,Stated [Primary Care Provider] - 1-2 days Tl Campos MD [STAFF PHYSICIAN] - 1-2 days Time of Disposition: 06:38
[2021-05-16 06:45] VITALS: BP 104/70; PULSE 93; RESP 18
== END 2021-05-16 06:44 | disposition home or self-care (01) ==
LOC: EC 05:27
DX: H53.8 Other visual disturbances (principal)
CPT/HCPCS: 99283

== ENCOUNTER → 2022-03-14 | Outpatient (CLI) | payer BC ==
--- NOTE | 2022-03-15 14:49 | MM ---
Reason for exam: screening (asymptomatic). Baseline mammogram. History: Patient had first child at age 32. Family history of breast cancer in 2 maternal aunts at age 70. Physical Findings: A clinical breast exam by your physician is recommended on an annual basis and results should be correlated with mammographic findings. MG 3D Screening Mammo W/Cad Bilateral CC and MLO view(s) were taken. The breast tissue is extremely dense which could obscure a lesion on mammography. Finding: There are indeterminate grouped/clustered calcifications in the upper quadrant of the left breast. ASSESSMENT: Incomplete: need additional imaging evaluation, BI-RAD 0 RECOMMENDATION: Special view mammogram of the left breast. [facility] will attempt to contact patient to return for supplemental views.
== END | disposition home or self-care (01) ==
LOC: RADMAMWWP 09:41
PROVIDERS: ATTEND Obstetrics & Gynecology
DX: Z12.31 Encounter for screening mammogram for malignant neoplasm of breast (principal); Z80.3 Family history of malignant neoplasm of breast
CPT/HCPCS: 77063; 77067

== ENCOUNTER → 2022-03-19 | Outpatient (CLI) | payer BC ==
--- NOTE | 2022-03-20 09:23 | MM ---
Reason for Exam: Additional evaluation requested from abnormal screening. Last screening mammogram was performed less than 1 month ago. Patient History: Menarche at age 13. First Full-Term at age 32. Late child-bearing (after 30). Maternal aunt had breast cancer, age 70. Maternal aunt had breast cancer, age 70. Last menstrual period: 03/14/2022 Risk Values: Pooja 5 year model risk: 0.9%. NCI Lifetime model risk: 13.4%. Film Views: 3D Left LM views were taken. Left LM magnification views were taken. Prior Study Comparison: 03/14/2022 Bilateral Screening Mammogram, [facility]. Tissue Density: Left: The breast tissue is heterogeneously dense. This may lower the sensitivity of mammography. Findings: Analyzed By CAD. Regional punctate calcifications noted and become less pronounced on magnification views. 6 month follow up recommended. These results were verbally communicated with the patient at the time of exam. Overall Assessment: Probably benign, BI-RAD 3 Management: Diagnostic Mammogram of the left breast in 6 months.
== END | disposition home or self-care (01) ==
LOC: RADMAMWWP 10:10
PROVIDERS: ATTEND Obstetrics & Gynecology
DX: R92.1 Mammographic calcification found on diagnostic imaging of breast (principal); Z80.3 Family history of malignant neoplasm of breast
CPT/HCPCS: 77061; 77065

== ENCOUNTER → 2023-04-07 | Outpatient (CLI) | payer BC ==
--- NOTE | 2023-04-08 09:19 | CT ---
EXAMINATION TYPE: CT sinus wo con DATE OF EXAM: 04/07/2023 COMPARISON: None HISTORY: bilateral chronic rhinitis CT DLP: 725.1 mGycm. Automated Exposure Control for Dose Reduction was Utilized. TECHNIQUE: CT scan of the sinuses is performed without contrast, axial images are obtained, coronal r eformatted images are also reviewed. FINDINGS: The paranasal sinuses including the frontal, ethmoid, sphenoid, and maxillary sinuses bila terally are well-aerated mild mucosal thickening involving the ethmoid air cells and inferior left ma xillary sinus. Slight nasal septal deviation. The ostiomeatal complex is patent bilaterally on the c oronal images. Visualized portion of mastoid air cells show no abnormal opacification. The globes are intact bilate rally. Soft tissue calcifications seen parapharyngeal space. Chronic IMPRESSION: 1. Mild chronic ethmoidal and left maxillary sinusitis. Ostiomeatal complexes patent bilaterally. 2. Slight right sided nasal septal deviation.
== END | disposition home or self-care (01) ==
LOC: RADCTMAIN 17:28
PROVIDERS: ATTEND Otolaryngology
DX: J32.0 Chronic maxillary sinusitis (principal); J32.2 Chronic ethmoidal sinusitis; J34.2 Deviated nasal septum
CPT/HCPCS: 70486

== ENCOUNTER → 2023-05-09 | Outpatient (CLI) | payer BC ==
--- NOTE | 2023-05-09 10:34 | MM ---
Reason for Exam: Additional evaluation requested from abnormal screening. Last mammogram was performed 1 year(s) and 2 month(s) ago. Patient History: Menarche at age 13. First Full-Term at age 32. Late child-bearing (after 30). Maternal aunt had breast cancer, age 70. Maternal aunt had breast cancer, age 70. Risk Values: Pooja 5 year model risk: 1.0%. NCI Lifetime model risk: 13.2%. Tissue Density: The breast tissue is extremely dense which could obscure a lesion on mammography. Analyzed By CAD. Overall Assessment: Benign, BI-RAD 2 Management: Screening Mammogram of both breasts in 1 year. Electronically signed and approved by: Yaya Ramirez DO
== END | disposition home or self-care (01) ==
LOC: RADMAMWWP 09:53
PROVIDERS: ATTEND Obstetrics & Gynecology
DX: R92.8 Other abnormal and inconclusive findings on diagnostic imaging of breast (principal); Z80.3 Family history of malignant neoplasm of breast
CPT/HCPCS: 77062; 77066